=== PATIENT | female | born 1955 | race African-American/Black ===

== ENCOUNTER 2017-01-01 19:57 | Emergency (ER) | payer OTHER ==
[~2017-01-01] VITALS: Ht 172.7 cm; Wt 132.0 kg
[2017-01-01 23:02] LABS: BASOPHILS % 0.6 % (0.0-2.0); EOSINOPHILS % 0.9 % (0.0-5.0); HEMOGLOBIN. 10.4 g/dL (12.0-16.0); MEAN CORPUSCULAR HEMOGLOBIN 26.4 pg (28.0-32.0); MEAN CORPUSCULAR VOLUME 83.7 fL (81.0-99.0); MEAN PLATELET VOLUME 9.1 fl (7.4-10.4); MONOCYTES % 10.3 % (2.0-8.0); NEUTROPHILS % 42.2 % (40.0-76.0); PLATELET 270 x1000/uL (130-400); RED BLOOD CELL COUNT 3.95 mill/uL (4.2-5.4); RED CELL DISTRIBUTION WIDTH 13.3 % (11.6-14.6)
[2017-01-01 23:19] LABS: CARBON DIOXIDE 30 mEq/L (21-32); CHLORIDE 103 mEq/L (98-107); ETHANOL BLOOD < 10 mg/dL; HCG SCREEN NEGATIVE
[2017-01-02] MEDS ORDERED: OLANZAPINE 5MG TABLET PO SCH (00:15)
[2017-01-02 00:44] LABS: CLARITY URINE CLEAR (CLEAR); COLOR URINE YELLOW (YELLOW); KETONES URINE NEGATIVE (NEGATIVE); LEUKOCYTE ESTERASE URINE 2+ (NEGATIVE); NITRITE URINE NEGATIVE (NEGATIVE); OCCULT BLOOD URINE NEGATIVE (NEGATIVE); PH URINE 6.5 (4.5-8.0); PROTEIN URINE NEGATIVE (NEGATIVE); SPECIFIC GRAVITY URINE 1.019 (1.005-1.030)
[2017-01-02 00:55] LABS: *AMPHETAMINES SCREEN URINE NEGATIVE (NEGATIVE); *BARBITURATES SCREEN URINE NEGATIVE (NEGATIVE); *BENZODIAZEPINES SCREEN URINE PRESUMTIVE POSITIVE (NEGATIVE); *COCAINE SCREEN URINE NEGATIVE (NEGATIVE); CANNABINOID URINE SCREEN NEGATIVE (NEGATIVE); METHADONE URINE SCREEN NEGATIVE (NEGATIVE); OPIATES URINE SCREEN NEGATIVE (NEGATIVE); PHENCYCLIDINE URINE SCREEN NEGATIVE (NEGATIVE)
[2017-01-02] MEDS ORDERED: LORAZEPAM 2MG/ML CPJ IM ONE ×2 (01:30)
[2017-01-02] MEDS ORDERED: HALOPERIDOL LACTATE 5MG/ML VIAL IM STA (01:42)
[2017-01-02 07:10] VITALS: BP 158/101
== END 2017-01-02 07:25 | disposition home or self-care (01) ==
LOC: ER 21:15
DX: R44.0 Auditory hallucinations (principal); I10 Essential (primary) hypertension; J44.9 Chronic obstructive pulmonary disease, unspecified; G40.909 Epilepsy, unspecified, not intractable, without status epilepticus
CPT/HCPCS: 36415; 80053; 80305; 80307; 80329; 81001; 84703; 85025; 96372; 99284; G0482; J1630; J2060; Z7610

== ENCOUNTER 2017-01-15 16:50 | Emergency (ER) | payer OTHER ==
[~2017-01-15] VITALS: Ht 172.7 cm; Wt 127.0 kg
[2017-01-15] MEDS ORDERED: LORAZEPAM 2MG/ML CPJ IM ONE (18:00)
[2017-01-15] MEDS ORDERED: HALOPERIDOL LACTATE 5MG/ML VIAL IM ONE (18:00)
[2017-01-15] MEDS ORDERED: DIPHENHYDRAMINE 50MG/ML VIAL IM ONE (18:00)
[2017-01-15 18:40] LABS: EOSINOPHILS % 1.2 % (0.0-5.0); HEMATOCRIT. 30.9 % (36.0-48.0); HEMOGLOBIN. 9.7 g/dL (12.0-16.0); LYMPHOCYTES % 55.8 % (20.0-50.0); MEAN CORPUSCULAR HEMOGLOBIN 26.3 pg (28.0-32.0); MEAN CORPUSCULAR VOLUME 83.8 fL (81.0-99.0); MEAN PLATELET VOLUME 9.5 fl (7.4-10.4); MONOCYTES % 7.9 % (2.0-8.0); NEUTROPHILS % 33.1 % (40.0-76.0); PLATELET 258 x1000/uL (130-400); RED BLOOD CELL COUNT 3.69 mill/uL (4.2-5.4); RED CELL DISTRIBUTION WIDTH 13.5 % (11.6-14.6)
[2017-01-15 19:04] LABS: CARBON DIOXIDE 30 mEq/L (21-32); CHLORIDE 106 mEq/L (98-107); ETHANOL BLOOD < 10 mg/dL
[2017-01-15 19:08] LABS: CARBAMAZEPINE < 0.5 ug/mL (4-12); PHENOBARBITAL < 2.1 ug/mL (15.0-40.0)
[2017-01-15 19:26] LABS: CLARITY URINE CLEAR (CLEAR); COLOR URINE YELLOW (YELLOW); GLUCOSE URINE NEGATIVE (NEGATIVE); KETONES URINE TRACE (NEGATIVE); LEUKOCYTE ESTERASE URINE 1+ (NEGATIVE); NITRITE URINE NEGATIVE (NEGATIVE); OCCULT BLOOD URINE NEGATIVE (NEGATIVE); PROTEIN URINE NEGATIVE (NEGATIVE); SPECIFIC GRAVITY URINE 1.023 (1.005-1.030)
[2017-01-15 19:44] LABS: *AMPHETAMINES SCREEN URINE NEGATIVE (NEGATIVE); *BARBITURATES SCREEN URINE NEGATIVE (NEGATIVE); *BENZODIAZEPINES SCREEN URINE PRESUMTIVE POSITIVE (NEGATIVE); *COCAINE SCREEN URINE NEGATIVE (NEGATIVE); CANNABINOID URINE SCREEN NEGATIVE (NEGATIVE); METHADONE URINE SCREEN NEGATIVE (NEGATIVE); OPIATES URINE SCREEN NEGATIVE (NEGATIVE); PHENCYCLIDINE URINE SCREEN NEGATIVE (NEGATIVE)
[2017-01-15 20:00] VITALS: BP 131/77
== END 2017-01-15 20:48 | disposition home or self-care (01) ==
LOC: ER 17:51
DX: F41.9 Anxiety disorder, unspecified (principal); J44.9 Chronic obstructive pulmonary disease, unspecified; I10 Essential (primary) hypertension; I25.2 Old myocardial infarction; F31.9 Bipolar disorder, unspecified; Z59.0 Homelessness
CPT/HCPCS: 36415; 80053; 80156; 80165; 80184; 80185; 80305; 80307; 80329; 81001; 85025; 96372; 99284; G0482; J1200; J1630; J2060; Z7610

== ENCOUNTER 2017-01-17 12:58 | Emergency (ER) | payer OTHER ==
[~2017-01-17] VITALS: Ht 177.8 cm; Wt 130.0 kg
[2017-01-17 18:00] VITALS: BP 113/76
== END 2017-01-17 18:49 | disposition home or self-care (01) ==
LOC: ER 13:26
DX: Z59.0 Homelessness (principal); I11.0 Hypertensive heart disease with heart failure; I50.9 Heart failure, unspecified; J44.9 Chronic obstructive pulmonary disease, unspecified; F31.9 Bipolar disorder, unspecified; G40.909 Epilepsy, unspecified, not intractable, without status epilepticus; E11.9 Type 2 diabetes mellitus without complications
CPT/HCPCS: 99283

== ENCOUNTER 2017-01-17 20:51 | Emergency (ER) | payer OTHER ==
[~2017-01-17] VITALS: Ht 170.2 cm; Wt 128.0 kg
[2017-01-17 21:46] VITALS: BP 134/70
== END 2017-01-18 01:31 | disposition home or self-care (01) ==
LOC: ER 20:51
DX: Z00.8 Encounter for other general examination (principal); I10 Essential (primary) hypertension; E11.9 Type 2 diabetes mellitus without complications; J44.9 Chronic obstructive pulmonary disease, unspecified; F31.9 Bipolar disorder, unspecified; I25.2 Old myocardial infarction; R56.9 Unspecified convulsions
CPT/HCPCS: 99281

== ENCOUNTER 2017-01-18 00:43 | Emergency (ER) | payer OTHER ==
[~2017-01-18] VITALS: Ht 170.2 cm; Wt 128.0 kg
[2017-01-18 01:55] VITALS: BP 128/68
== END 2017-01-18 05:56 | disposition left against medical advice (07) ==
LOC: ER 00:43
DX: R51 Headache (principal); Z53.21 Procedure and treatment not carried out due to patient leaving prior to being seen by health care provider

== ENCOUNTER 2017-01-18 18:18 | Emergency (ER) | payer OTHER ==
[~2017-01-18] VITALS: Ht 165.1 cm; Wt 120.0 kg
[2017-01-18 18:19] VITALS: BP 116/65
== END 2017-01-19 13:04 | disposition left against medical advice (07) ==
LOC: ER 20:32
DX: Z53.21 Procedure and treatment not carried out due to patient leaving prior to being seen by health care provider (principal)

== ENCOUNTER 2017-01-21 08:56 | Emergency (ER) | payer OTHER ==
[~2017-01-21] VITALS: Ht 152.4 cm; Wt 131.0 kg
[2017-01-21 10:26] VITALS: BP 141/77
== END 2017-01-21 14:45 | disposition left against medical advice (07) ==
LOC: ER 08:56
DX: M25.571 Pain in right ankle and joints of right foot (principal); Z53.21 Procedure and treatment not carried out due to patient leaving prior to being seen by health care provider

== ENCOUNTER 2017-06-22 09:23 | Inpatient (IN) | payer OTHER ==
[~2017-06-22] VITALS: Ht 170.2 cm; Wt 123.4 kg
[~2017-06-22 09:23] MED LIST: ASPI-1159 PO; CALC0.253 PO; CLON0.3T PO; DIVA500T51 PO; LISI40TA4 PO; METF500T4 PO; METO-539 PO; OXYB5TAB11 PO; QUET200T PO
[2017-06-22] MEDS ORDERED: PREDNISONE 20MG TABLET PO STA (09:42)
[2017-06-22] MEDS ORDERED: METOPROLOL TARTRATE 50MG TABLET PO ONE (09:45)
[2017-06-22] MEDS ORDERED: CLONIDINE 0.3MG TABLET PO ONE (09:45)
[2017-06-22] MEDS ORDERED: LISINOPRIL 40MG TABLET PO ONE (09:45)
[2017-06-22 10:18] LABS: BASOPHILS % 1.1 % (0.0-2.0); EOSINOPHILS % 1.9 % (0.0-5.0); HEMATOCRIT. 31.9 % (36.0-48.0); LYMPHOCYTES % 43.7 % (20.0-50.0); MEAN CORPUSCULAR HEMOGLOBIN 25.1 pg (28.0-32.0); MEAN PLATELET VOLUME 9.4 fl (7.4-10.4); MONOCYTES % 8.9 % (2.0-8.0); NEUTROPHILS % 44.4 % (40.0-76.0); PLATELET 302 x1000/uL (130-400); RED BLOOD CELL COUNT 3.99 mill/uL (4.2-5.4); RED CELL DISTRIBUTION WIDTH 14.9 % (11.6-14.6)
[2017-06-22 10:23] LABS: INR 1.1; PARTIAL THROMBOPLASTIN TIME 24.9 sec (23.4-31.0); PROTHROMBIN TIME 11.2 sec (9.4-11.6)
[2017-06-22 10:30] LABS: CHLORIDE 101 mEq/L (98-107); TROPONIN I < 0.02 ng/mL (0.00-0.04)
[2017-06-22] MEDS ORDERED: NITROGLYCERIN OINT 1GM/INCH UDPKT TD ONE (11:00)
[2017-06-22] MEDS ORDERED: FUROSEMIDE 40MG/4ML VIAL IVP ONE (11:00)
[2017-06-22] MEDS ORDERED: LORAZEPAM 1MG TABLET PO ONE (13:30)
[2017-06-22] MEDS ORDERED: DOCUSATE SODIUM 100MG CAPSULE PO PRN (17:45)
[2017-06-22] MEDS ORDERED: MAGNESIUM/ALUMINUM HYDROXIDE/SIMETHICONE 30ML UDC PO PRN (17:45)
[2017-06-22] MEDS ORDERED: IPRATROPIUM/ALBUTEROL 0.5-3(2.5)MG/3ML NEB HHN PRN (17:45)
[2017-06-22] MEDS ORDERED: LORAZEPAM 2MG/ML CPJ IV PRN (17:45)
[2017-06-22] MEDS ORDERED: HYDROCODONE/ACETAMINOPHEN 5/325MG TABLET PO PRN (17:45)
[2017-06-22] MEDS ORDERED: DIPHENHYDRAMINE 50MG/ML VIAL IV PRN (17:45)
[2017-06-22] MEDS ORDERED: CLONIDINE 0.1MG TABLET PO PRN (17:45)
[2017-06-22] MEDS ORDERED: ACETAMINOPHEN 325MG TABLET PO PRN (17:45)
[2017-06-22] MEDS ORDERED: GUAIFENESIN/CODEINE 100-10MG/5ML UDC PO PRN (17:45)
[2017-06-22] MEDS ORDERED: ONDANSETRON HCL 4MG/2ML VIAL IV PRN (17:45)
[2017-06-22 17:57] VITALS: BP 144/77
[2017-06-22 19:57] VITALS: BP 149/83
[2017-06-22] MEDS ORDERED: DEXTROSE 50% WATER 50ML SYRINGE IV PRN (20:15)
[2017-06-22] MEDS: ENOXAPARIN 30MG/0.3ML SYR SUBCUT SCH (20:31)
[2017-06-22] MEDS: INSULIN LISPRO 100 UNITS/ML SUBCUT SCH (20:44)
[2017-06-22] MEDS: BLOOD SUGAR DIAGNOSTIC STRIP TEST SCH (20:44)
[2017-06-23] VITALS: BP 135/80
[2017-06-23 04:00] VITALS: BP 155/88
[2017-06-23 06:55] LABS: HEMATOCRIT 32.8 % (36.0-48.0); HEMOGLOBIN 10.1 g/dL (12.0-16.0); MEAN CORPUSCULAR HEMOGLOBIN 24.7 pg (28.0-32.0); MEAN CORPUSCULAR VOLUME 80.1 fL (81.0-99.0); PLATELET 322 x1000/uL (130-400); RED CELL DISTRIBUTION WIDTH 15.2 % (11.6-14.6)
[2017-06-23] MEDS: INSULIN LISPRO 100 UNITS/ML SUBCUT SCH ×4 (07:15→21:00)
[2017-06-23] MEDS: BLOOD SUGAR DIAGNOSTIC STRIP TEST SCH ×4 (07:15→21:31)
[2017-06-23 07:52] LABS: CHLORIDE 99 mEq/L (98-107)
[2017-06-23 08:00] VITALS: BP 175/87
[2017-06-23] MEDS: ASPIRIN 81MG TABLET PO SCH (08:46)
[2017-06-23] MEDS: ENOXAPARIN 30MG/0.3ML SYR SUBCUT SCH ×2 (08:46→21:22)
[2017-06-23] MEDS ORDERED: CALCITRIOL 0.25MCG CAPSULE PO SCH (09:00)
[2017-06-23] MEDS: METOPROLOL TARTRATE 50MG TABLET PO SCH ×2 (09:57→21:21)
[2017-06-23] MEDS: OXYBUTYNIN CHLORIDE 5MG TABLET PO SCH ×3 (09:57→16:34)
[2017-06-23] MEDS: CLONIDINE 0.3MG TABLET PO SCH ×3 (09:57→16:34)
[2017-06-23] MEDS: DIVALPROEX SODIUM 500MG ER TABLET PO SCH (09:57)
[2017-06-23] MEDS: LISINOPRIL 40MG TABLET PO SCH (09:57)
[2017-06-23] MEDS: METFORMIN HCL 500MG TABLET PO SCH ×2 (09:57→16:34)
[2017-06-23 12:00] VITALS: BP 174/75
[2017-06-23] MEDS: FUROSEMIDE 40MG/4ML VIAL IVP SCH ×2 (15:06→16:34)
[2017-06-23 16:00] VITALS: BP 153/74
[2017-06-23] MEDS: IPRATROPIUM/ALBUTEROL 0.5-3(2.5)MG/3ML NEB HHN SCH ×2 (16:30→21:32)
[2017-06-23 20:00] VITALS: BP 119/64
[2017-06-23] MEDS ORDERED: QUETIAPINE FUMARATE 100MG TABLET PO SCH (21:00)
[2017-06-23] MEDS: HYDRALAZINE HCL 50MG TABLET PO SCH (21:21)
[2017-06-24] VITALS: BP 142/80
[2017-06-24 04:00] VITALS: BP 169/73
[2017-06-24] MEDS: HYDRALAZINE HCL 50MG TABLET PO SCH (06:04)
[2017-06-24] MEDS: BLOOD SUGAR DIAGNOSTIC STRIP TEST SCH (06:56)
[2017-06-24] MEDS: INSULIN LISPRO 100 UNITS/ML SUBCUT SCH (06:57)
[2017-06-24] MEDS: IPRATROPIUM/ALBUTEROL 0.5-3(2.5)MG/3ML NEB HHN SCH (07:42)
[2017-06-24 08:00] VITALS: BP 158/91
[2017-06-24] MEDS: DIVALPROEX SODIUM 500MG ER TABLET PO SCH (08:43)
[2017-06-24] MEDS: OXYBUTYNIN CHLORIDE 5MG TABLET PO SCH (08:43)
[2017-06-24] MEDS: LISINOPRIL 40MG TABLET PO SCH (08:43)
[2017-06-24] MEDS: CLONIDINE 0.3MG TABLET PO SCH (08:43)
[2017-06-24] MEDS: ENOXAPARIN 30MG/0.3ML SYR SUBCUT SCH (08:44)
[2017-06-24] MEDS: ASPIRIN 81MG TABLET PO SCH (08:44)
[2017-06-24] MEDS: METFORMIN HCL 500MG TABLET PO SCH (08:44)
[2017-06-24] MEDS: FUROSEMIDE 40MG/4ML VIAL IVP SCH ×2 (08:44→09:36)
[2017-06-24] MEDS: METOPROLOL TARTRATE 50MG TABLET PO SCH (08:44)
[2017-06-24] MEDS ORDERED: DIVALPROEX SODIUM 500MG ER TABLET PO SCH (21:00)
== END 2017-06-24 10:10 | disposition left against medical advice (07) | DRG 144 ==
LOC: ER 09:58 → 8WST 11:01 → ENRESERV 13:36
PROVIDERS: ADMIT Internal Medicine; ATTEND Internal Medicine
DX: R06.02 Shortness of breath (principal); I11.0 Hypertensive heart disease with heart failure; I50.9 Heart failure, unspecified; Z68.41 Body mass index [BMI] 40.0-44.9, adult; E66.01 Morbid (severe) obesity due to excess calories; J44.9 Chronic obstructive pulmonary disease, unspecified; E11.9 Type 2 diabetes mellitus without complications; F31.9 Bipolar disorder, unspecified; F17.200 Nicotine dependence, unspecified, uncomplicated; G40.909 Epilepsy, unspecified, not intractable, without status epilepticus; Z53.21 Procedure and treatment not carried out due to patient leaving prior to being seen by health care provider; I25.10 Atherosclerotic heart disease of native coronary artery without angina pectoris; I25.2 Old myocardial infarction; Z79.82 Long term (current) use of aspirin; Z79.84 Long term (current) use of oral hypoglycemic drugs; Z79.899 Other long term (current) drug therapy; Z91.19 Patient's noncompliance with other medical treatment and regimen; Z90.49 Acquired absence of other specified parts of digestive tract
CPT/HCPCS: 36415; 71045; 80048; 80053; 80061; 82962; 83036; 83880; 84439; 84443; 84484; 85025; 85027; 85610; 85730; 93005; 94640; 94664; 96374; 99285; J1650; J1815; J1940; J2060; J7512; J7620

== ENCOUNTER 2017-06-24 14:10 | Emergency (ER) | payer OTHER ==
[~2017-06-24] VITALS: Ht 170.2 cm; Wt 82.0 kg
[2017-06-24 19:11] LABS: BASOPHILS % 1.3 % (0.0-2.0); EOSINOPHILS % 1.2 % (0.0-5.0); HEMATOCRIT. 34.4 % (36.0-48.0); LYMPHOCYTES % 50.9 % (20.0-50.0); MEAN CORPUSCULAR HEMOGLOBIN 25.6 pg (28.0-32.0); MEAN CORPUSCULAR VOLUME 79.9 fL (81.0-99.0); MEAN PLATELET VOLUME 9.3 fl (7.4-10.4); MONOCYTES % 5.9 % (2.0-8.0); NEUTROPHILS % 40.7 % (40.0-76.0); PLATELET 319 x1000/uL (130-400); RED BLOOD CELL COUNT 4.31 mill/uL (4.2-5.4)
[2017-06-24 19:26] LABS: CHLORIDE 101 mEq/L (98-107); TROPONIN I < 0.02 ng/mL (0.00-0.04)
[2017-06-24] MEDS ORDERED: CLONIDINE 0.3MG TABLET PO ONE (19:30)
[2017-06-25 10:03] VITALS: BP 161/82
== END 2017-06-25 10:05 | disposition home or self-care (01) ==
LOC: ER 15:26
DX: R06.02 Shortness of breath (principal); F41.0 Panic disorder [episodic paroxysmal anxiety]; Z91.14 Patient's other noncompliance with medication regimen; I11.0 Hypertensive heart disease with heart failure; I50.9 Heart failure, unspecified; E11.9 Type 2 diabetes mellitus without complications; G40.909 Epilepsy, unspecified, not intractable, without status epilepticus; J44.9 Chronic obstructive pulmonary disease, unspecified; F17.210 Nicotine dependence, cigarettes, uncomplicated; Z59.0 Homelessness
CPT/HCPCS: 36415; 71045; 80053; 83880; 84484; 85025; 93005; 99285

== ENCOUNTER 2017-07-16 02:49 | Emergency (ER) | payer OTHER ==
[~2017-07-16] VITALS: Ht 170.2 cm; Wt 132.0 kg
[2017-07-16] MEDS ORDERED: IPRATROPIUM BROMIDE (0.02%) 0.5MG/2.5ML NEB HHN STA (03:14)
[2017-07-16] MEDS ORDERED: ALBUTEROL (0.083%) 2.5MG/3ML NEB HHN STA (03:14)
[2017-07-16] MEDS ORDERED: METHYLPREDNISOLONE SOD SUCC 125 MG/2 ML VIAL IV STA (03:14)
[2017-07-16] MEDS ORDERED: MAGNESIUM 2 G PREMIX 50 ML IV ONE (03:15)
[2017-07-16] MEDS ORDERED: AZITHROMYCIN 500 MG in DEXT 5% WATER 250 ML IV SCH (04:00)
[2017-07-16] MEDS ORDERED: CEFTRIAXONE 1 G PREMIX 50 ML IV ONE (04:00)
[2017-07-16] MEDS ORDERED: FUROSEMIDE 100MG/10ML VIAL IVP ONE (04:00)
[2017-07-16 05:44] LABS: BASOPHILS % 0.9 % (0.0-2.0); EOSINOPHILS % 0.4 % (0.0-5.0); HEMATOCRIT. 35.1 % (36.0-48.0); HEMOGLOBIN. 10.7 g/dL (12.0-16.0); LYMPHOCYTES % 19.2 % (20.0-50.0); MEAN CORPUSCULAR HEMOGLOBIN 25.4 pg (28.0-32.0); MEAN CORPUSCULAR VOLUME 83.4 fL (81.0-99.0); MEAN PLATELET VOLUME 9.6 fl (7.4-10.4); MONOCYTES % 6.5 % (2.0-8.0); PLATELET 264 x1000/uL (130-400); RED BLOOD CELL COUNT 4.21 mill/uL (4.2-5.4)
[2017-07-16 05:45] LABS: PROTHROMBIN TIME 10.6 sec (9.4-11.6)
[2017-07-16 05:50] LABS: CHLORIDE 106 mEq/L (98-107)
[2017-07-16 05:55] LABS: TROPONIN I 0.05 ng/mL (0.00-0.04)
[2017-07-16] MEDS ORDERED: OLANZAPINE 10 MG/VIAL IM ONE ×2 (06:15→10:00)
[2017-07-16 11:21] VITALS: BP 178/94
[2017-07-16] MEDS: METHYLPREDNISOLONE SOD SUCC 125 MG/2 ML VIAL IM ONE ×2 (11:39→11:41)
== END 2017-07-16 11:30 | disposition short-term general hospital (02) ==
LOC: ER 03:00 → EDBEDREQ 04:21 → EDBEDREQSVC 04:21 → ER 11:30 → CANRESERV 18:32 → ENRESERV 18:32 → CANBEDREQ 07-17 02:12
DX: J44.1 Chronic obstructive pulmonary disease with (acute) exacerbation (principal); I11.0 Hypertensive heart disease with heart failure; I50.9 Heart failure, unspecified; E11.9 Type 2 diabetes mellitus without complications; R00.0 Tachycardia, unspecified; G40.909 Epilepsy, unspecified, not intractable, without status epilepticus; F17.210 Nicotine dependence, cigarettes, uncomplicated; Z71.6 Tobacco abuse counseling; I25.2 Old myocardial infarction; Z79.82 Long term (current) use of aspirin; Z86.73 Personal history of transient ischemic attack (TIA), and cerebral infarction without residual deficits; J84.9 Interstitial pulmonary disease, unspecified; Z59.0 Homelessness; Z90.49 Acquired absence of other specified parts of digestive tract; Z79.899 Other long term (current) drug therapy
CPT/HCPCS: 36415; 71045; 80053; 83605; 83880; 84484; 85025; 85610; 87040; 93005; 96372; 96374; 99285; 99406; C1893; J0456; J2930; J3490; Z7610; J7060; J7611

== ENCOUNTER 2018-09-11 14:08 | Inpatient (IN) | payer OTHER ==
[~2018-09-11] VITALS: Ht 170.2 cm; Wt 132.0 kg
[~2018-09-11 14:08] MED LIST changes: +METF-414 PO; -METF500T4 PO
[2018-09-11 15:42] LABS: CHLORIDE 104 mEq/L (98-107); HEMOGLOBIN. 12.2 g/dL (12.0-16.0); MEAN CORPUSCULAR HEMOGLOBIN 26.6 pg (28.0-32.0); MEAN CORPUSCULAR VOLUME 83.2 fL (81.0-99.0); MEAN PLATELET VOLUME 10.1 fl (7.4-10.4); PLATELET 257 x1000/uL (130-400); RED BLOOD CELL COUNT 4.57 mill/uL (4.2-5.4); RED CELL DISTRIBUTION WIDTH 13.5 % (11.6-14.6)
[2018-09-11 16:03] LABS: PLATELET ESTIMATE NORMAL
[2018-09-11 16:17] LABS: PROTHROMBIN TIME 10.5 sec (9.6-11.0)
[2018-09-11 16:51] LABS: CLARITY URINE CLOUDY (CLEAR); COLOR URINE DARK YELLOW (YELLOW); KETONES URINE TRACE (NEGATIVE); LEUKOCYTE ESTERASE URINE 1+ (NEGATIVE); NITRITE URINE NEGATIVE (NEGATIVE); OCCULT BLOOD URINE NEGATIVE (NEGATIVE); PH URINE 5.5 (4.5-8.0); PROTEIN URINE TRACE (NEGATIVE); SPECIFIC GRAVITY URINE 1.032 (1.005-1.030)
[2018-09-11] MEDS ORDERED: FAMOTIDINE 20MG/2ML VIAL IV STA (17:32)
[2018-09-11] MEDS ORDERED: MAGNESIUM/ALUMINUM HYDROXIDE/SIMETHICONE 30ML UDC PO STA (17:32)
[2018-09-11] MEDS ORDERED: SODIUM CHLORIDE 0.9% 1,000 ML IV ONE (17:32)
[2018-09-11] MEDS ORDERED: ONDANSETRON HCL 4MG/2ML INJ IV STA (17:32)
[2018-09-11] MEDS ORDERED: DICYCLOMINE HCL 10MG/ML 2ML AMP IM ONE (17:45)
[2018-09-11] MEDS ORDERED: FAMOTIDINE 20MG TABLET PO ONE (19:15)
[2018-09-11] MEDS ORDERED: ONDANSETRON HCL 4MG TABLET PO ONE (19:15)
[2018-09-11] MEDS ORDERED: CLONIDINE 0.3MG TABLET PO ONE (19:30)
[2018-09-11] MEDS ORDERED: METRONIDAZOLE 500MG TABLET PO ONE (21:45)
[2018-09-11] MEDS ORDERED: CEFTRIAXONE 1 G PREMIX 50 ML IV ONE (21:45)
[2018-09-11] MEDS ORDERED: MAGNESIUM/ALUMINUM HYDROXIDE/SIMETHICONE 30ML UDC PO SCH (22:00)
[2018-09-11] MEDS ORDERED: DICYCLOMINE HCL 10MG/ML 2ML AMP IM SCH (22:00)
[2018-09-11] MEDS ORDERED: CLONIDINE 0.3MG TABLET PO SCH (22:00)
[2018-09-12] VITALS (7 sets, daily range): BP systolic 130–213; BP diastolic 77–131
[2018-09-12 06:50] LABS: HEMATOCRIT 40.7 % (36.0-48.0); HEMOGLOBIN 12.8 g/dL (12.0-16.0); MEAN CORPUSCULAR HEMOGLOBIN 26.2 pg (28.0-32.0); PLATELET 223 x1000/uL (130-400); RED CELL DISTRIBUTION WIDTH 13.6 % (11.6-14.6)
[2018-09-12] MEDS ORDERED: ONDANSETRON HCL 4MG/2ML INJ IV PRN (11:15)
[2018-09-12] MEDS ORDERED: CLONIDINE 0.1MG TABLET PO PRN (11:15)
[2018-09-12] MEDS ORDERED: LOSARTAN POTASSIUM 25 MG TABLET PO NR (11:30)
[2018-09-12] MEDS ORDERED: LABETALOL 5MG/ML SYR 20 MG/4 ML SYRINGE IV ONE (12:00)
[2018-09-12] MEDS: NICOTINE 7MG PATCH TD SCH (12:39)
[2018-09-12] MEDS: MORPHINE SULFATE 4 MG/ML CPJ (NOT FOR IM USE) IV PRN ×2 (12:40→17:46)
[2018-09-12] MEDS: CEFTRIAXONE 1 G PREMIX 50 ML IV SCH (12:41)
[2018-09-12] MEDS ORDERED: SORBITOL 70% SOLN 30ML PO PRN (13:15)
[2018-09-12] MEDS ORDERED: HYDRALAZINE 20MG/ML VIAL IV PRN (13:45)
[2018-09-12] MEDS: CLONIDINE 0.3MG TABLET PO SCH ×2 (14:00→22:32)
[2018-09-12] MEDS: DICYCLOMINE HCL 10MG CAPSULE PO SCH ×2 (14:09→17:46)
[2018-09-12] MEDS: DOCUSATE SODIUM SUGAR FREE 100MG/10ML UDC NG SCH ×2 (14:09→17:46)
[2018-09-12 16:05] LABS: HEMOGLOBIN 12.6 g/dL (12.0-16.0)
[2018-09-12] MEDS ORDERED: SORBITOL 70% SOLN 30ML PO NR ×2 (17:00→21:00)
[2018-09-12] MEDS: LOSARTAN POTASSIUM 50 MG TABLET PO SCH (21:00)
[2018-09-12] MEDS: AMLODIPINE 5MG TABLET PO SCH (21:00)
[2018-09-12] MEDS: PANTOPRAZOLE SODIUM 40 MG/VIAL IV SCH (21:08)
[2018-09-12] MEDS: DIVALPROEX SODIUM 250MG ER TABLET PO SCH (22:32)
[2018-09-12] MEDS: QUETIAPINE FUMARATE 100MG TABLET PO SCH (22:33)
[2018-09-13] VITALS (9 sets, daily range): BP systolic 70–128; BP diastolic 47–74
[2018-09-13] MEDS: CLONIDINE 0.3MG TABLET PO SCH ×3 (06:00→21:11)
[2018-09-13] MEDS: DICYCLOMINE HCL 10MG CAPSULE PO SCH ×4 (06:00→18:16)
[2018-09-13] MEDS ORDERED: SORBITOL 70% SOLN 30ML PO NR (06:00)
[2018-09-13] MEDS: AMLODIPINE 5MG TABLET PO SCH (09:00)
[2018-09-13] MEDS ORDERED: LOSARTAN POTASSIUM 50 MG TABLET PO SCH (09:00)
[2018-09-13] MEDS ORDERED: PANTOPRAZOLE SODIUM 40 MG/VIAL IV SCH (09:00)
[2018-09-13] MEDS ORDERED: QUETIAPINE FUMARATE 100MG TABLET PO SCH ×2 (09:00→21:00)
[2018-09-13] MEDS: LOSARTAN POTASSIUM 50 MG TABLET PO SCH (09:00)
[2018-09-13] MEDS: PANTOPRAZOLE SODIUM 40 MG/VIAL IV SCH ×2 (09:20→21:10)
[2018-09-13] MEDS: DOCUSATE SODIUM SUGAR FREE 100MG/10ML UDC NG SCH ×2 (09:21→17:00)
[2018-09-13] MEDS: NICOTINE 7MG PATCH TD SCH (09:21)
[2018-09-13] MEDS: MORPHINE SULFATE 4 MG/ML CPJ (NOT FOR IM USE) IV PRN (09:45)
[2018-09-13 10:16] LABS: BASOPHILS % 0.5 % (0.0-2.0); EOSINOPHILS % 0.4 % (0.0-5.0); HEMATOCRIT. 37.9 % (36.0-48.0); HEMOGLOBIN. 11.9 g/dL (12.0-16.0); LYMPHOCYTES % 26.7 % (20.0-50.0); MEAN CORPUSCULAR HEMOGLOBIN 26.2 pg (28.0-32.0); MEAN CORPUSCULAR VOLUME 83.1 fL (81.0-99.0); MEAN PLATELET VOLUME 9.8 fl (7.4-10.4); MONOCYTES % 7.9 % (2.0-8.0); NEUTROPHILS % 64.5 % (40.0-76.0); PLATELET 228 x1000/uL (130-400); RED BLOOD CELL COUNT 4.56 mill/uL (4.2-5.4); RED CELL DISTRIBUTION WIDTH 13.4 % (11.6-14.6)
[2018-09-13] MEDS: CEFTRIAXONE 1 G PREMIX 50 ML IV SCH (11:43)
[2018-09-13] MEDS ORDERED: SODIUM BICARBONATE 4% (2.4MEQ) 5ML VIAL IV ONE (13:16)
[2018-09-13] MEDS ORDERED: LIDOCAINE HCL 1% 20ML VIAL (Pyxis) INJ ONE (13:16)
[2018-09-13] MEDS ORDERED: BACTERIOSTATIC SODIUM CHLORIDE 0.9% 30ML VIAL IJ ONE (13:36)
[2018-09-13] MEDS ORDERED: SIMETHICONE 40 MG/0.6 ML 30ML ONE (13:36)
[2018-09-13] MEDS ORDERED: FENTANYL CITRATE/PF 50MCG/ML 2ML VIAL ONE (14:32)
[2018-09-13] MEDS ORDERED: MIDAZOLAM HCL 5 MG/5 ML VIAL ONE (14:32)
[2018-09-13 15:02] LABS: CREATINE KINASE 57 IU/L (26-192)
[2018-09-13] MEDS: SODIUM CHLORIDE 0.9% 1,000 ML IV SCH (16:31)
[2018-09-13] MEDS: QUETIAPINE FUMARATE 100MG TABLET PO SCH (21:10)
[2018-09-13] MEDS: DIVALPROEX SODIUM 250MG ER TABLET PO SCH (21:15)
[2018-09-14] MEDS: SODIUM CHLORIDE 0.9% 1,000 ML IV SCH (05:55)
[2018-09-14] MEDS: DICYCLOMINE HCL 10MG CAPSULE PO SCH ×3 (05:55→12:05)
[2018-09-14] MEDS: CLONIDINE 0.3MG TABLET PO SCH ×2 (05:55→14:00)
[2018-09-14 06:00] VITALS: BP 138/102
[2018-09-14 07:17] LABS: BASOPHILS % 0.4 % (0.0-2.0); HEMATOCRIT. 31.6 % (36.0-48.0); HEMOGLOBIN. 9.9 g/dL (12.0-16.0); LYMPHOCYTES % 31.8 % (20.0-50.0); MEAN CORPUSCULAR HEMOGLOBIN 26.3 pg (28.0-32.0); MEAN CORPUSCULAR VOLUME 84.1 fL (81.0-99.0); MEAN PLATELET VOLUME 10.3 fl (7.4-10.4); MONOCYTES % 8.7 % (2.0-8.0); NEUTROPHILS % 58.1 % (40.0-76.0); PLATELET 155 x1000/uL (130-400); RED BLOOD CELL COUNT 3.76 mill/uL (4.2-5.4); RED CELL DISTRIBUTION WIDTH 13.2 % (11.6-14.6)
[2018-09-14 07:20] LABS: CHLORIDE 109 mEq/L (98-107)
[2018-09-14 07:35] LABS: PHOSPHORUS 2.6 mg/dL (2.5-4.9)
[2018-09-14] MEDS ORDERED: MAGNESIUM OXIDE 400MG TABLET PO SCH (08:00)
[2018-09-14] MEDS: PANTOPRAZOLE SODIUM 40 MG/VIAL IV SCH (09:27)
[2018-09-14] MEDS: DOCUSATE SODIUM SUGAR FREE 100MG/10ML UDC NG SCH (09:28)
[2018-09-14] MEDS: NICOTINE 7MG PATCH TD SCH (09:28)
[2018-09-14] MEDS ORDERED: FUROSEMIDE 40MG/4ML VIAL IVP NR (11:30)
[2018-09-14 14:35] VITALS: BP 130/90
[2018-09-14] MEDS: CEFTRIAXONE 1 G PREMIX 50 ML IV SCH (15:03)
[2018-09-16 10:06] LABS: SACCHAROMYCES CEREVISIAE IGG <20.0 Units (0.0-24.9); SACCHAROMYCES CEREVISIAE IGM <20.0 Units (0.0-24.9)
[2018-09-16 14:15] LABS: ATYPICAL pANCA <1:20 titer (Neg:<1:20)
== END 2018-09-14 16:10 | disposition home or self-care (01) | DRG 246 ==
LOC: ER 14:08 → CANRESERV 09-12 08:26 → ENRESERV 09-12 08:26 → UNDOADMIN 09-12 08:49 → 5EST 09-12 08:49 → EDBEDREQSVC 09-12 08:51 → CANRESERV 09-12 10:06 → ENRESERV 09-12 10:06 → 5EST 09-12 11:05
PROVIDERS: ADMIT Internal Medicine; ATTEND Internal Medicine
PROC: 0DBN8ZX Excision of Sigmoid Colon, Via Natural or Artificial Opening Endoscopic, Diagnostic (ICD-10-PCS; principal; 2018-09-13)
PROC: 02HV33Z Insertion of Infusion Device into Superior Vena Cava, Percutaneous Approach (ICD-10-PCS; 2018-09-13)
PROC: B548ZZA Ultrasonography of Superior Vena Cava, Guidance (ICD-10-PCS; 2018-09-13)
DX: K55.039 Acute (reversible) ischemia of large intestine, extent unspecified (principal); N17.9 Acute kidney failure, unspecified; I50.9 Heart failure, unspecified; I11.0 Hypertensive heart disease with heart failure; E66.01 Morbid (severe) obesity due to excess calories; E87.5 Hyperkalemia; K64.8 Other hemorrhoids; E11.9 Type 2 diabetes mellitus without complications; E78.5 Hyperlipidemia, unspecified; F17.210 Nicotine dependence, cigarettes, uncomplicated; F31.9 Bipolar disorder, unspecified; I25.10 Atherosclerotic heart disease of native coronary artery without angina pectoris; J44.9 Chronic obstructive pulmonary disease, unspecified; K76.89 Other specified diseases of liver; N39.0 Urinary tract infection, site not specified; K59.00 Constipation, unspecified; K92.2 Gastrointestinal hemorrhage, unspecified; I25.2 Old myocardial infarction; Z79.82 Long term (current) use of aspirin; Z79.899 Other long term (current) drug therapy; Z82.49 Family history of ischemic heart disease and other diseases of the circulatory system; Z83.3 Family history of diabetes mellitus; Z90.49 Acquired absence of other specified parts of digestive tract; Z68.42 Body mass index [BMI] 45.0-49.9, adult
CPT/HCPCS: 36415; 36569; 71045; 74176; 76937; 80048; 82550; 82962; 83735; 83880; 84100; 85014; 85018; 85027; 86256; 86671; 88305; 99285; C1725; C1893; C9113; J0360; J0500; J0696; J1940; J2250; J2270; J3010; J3490; J7030; J7050; Q0162; A4315

== ENCOUNTER 2020-07-31 22:39 | Inpatient (IN) | payer OTHER ==
[~2020-07-31] VITALS: Ht 172.7 cm; Wt 140.3 kg
[~2020-07-31 22:39] MED LIST changes: -ASPI-1159 PO; +ASPI-1497 PO; +LISI40TA13 PO; -LISI40TA4 PO; -OXYB5TAB11 PO; +OXYB5TAB17 PO
[2020-07-31] MEDS ORDERED: METHYLPREDNISOLONE SOD SUCC 125 MG/2 ML VIAL IV STA (22:46)
[2020-07-31] MEDS ORDERED: IPRATROPIUM BROMIDE (0.02%) 0.5MG/2.5ML NEB HHN STA (22:46)
[2020-07-31] MEDS ORDERED: ASPIRIN 81MG TABLET PO ONE (23:00)
[2020-07-31] MEDS ORDERED: ALBUTEROL (0.083%) 2.5MG/3ML NEB HHN SCH (23:00)
[2020-07-31 23:39] LABS: BG BASE EXCESS 1.5 mmol/L (-2.0-2.0); BG CARBOXYHEMOGLOBIN 2.1 % (0.5-1.5); BG DEOXYHEMOGLOBIN 6.8 % (0.0-5.0); BG FRACTION INSPIRED OXYGEN 44; BG HCO3 ACT 29.7 mmol/L (22.0-26.0); BG METHEMOGLOBIN 0.2 % (0.0-1.5); BG OXYHEMOGLOBIN 90.9 % (94.0-97.0); BG PCO2 67.7 mmHg (35.0-45.0); BG PO2 76.3 mmHg (75.0-100.0); BG SAMPLE SITE RIGHT RADIAL; BG TOTAL HEMOGLOBIN 10.5 g/dL (12.0-18.0); BG VENT MODE NASAL CANNULA
[2020-07-31 23:43] LABS: BASOPHILS % 1.2 % (0.0-2.0); EOSINOPHILS % 2.8 % (0.0-5.0); HEMATOCRIT. 31.9 % (36.0-48.0); LYMPHOCYTES % 34.5 % (20.0-50.0); MEAN CORPUSCULAR HEMOGLOBIN 25.9 pg (28.0-32.0); MEAN CORPUSCULAR VOLUME 82.8 fL (81.0-99.0); MONOCYTES % 6.7 % (2.0-8.0); NEUTROPHILS % 54.8 % (40.0-76.0); PLATELET 214 x1000/uL (130-400); RED BLOOD CELL COUNT 3.86 mill/uL (4.2-5.4); RED CELL DISTRIBUTION WIDTH 13.8 % (11.6-14.6)
[2020-07-31 23:49] LABS: CHLORIDE 108 mEq/L (98-107)
[2020-08-01] VITALS (24 sets, daily range): BP systolic 128–165; BP diastolic 76–97
[2020-08-01] MEDS ORDERED: NITROGLYCERIN OINT 1GM/INCH UDPKT TD SCH (00:30)
[2020-08-01] MEDS ORDERED: FUROSEMIDE 40MG/4ML VIAL IV SCH (00:30)
[2020-08-01] MEDS ORDERED: ALBUTEROL 6.7GM HFA INHALER ORI PRN (06:00)
[2020-08-01] MEDS ORDERED: CEFTRIAXONE 1,000 MG in DEXTROSE 5% WATER 50 ML IV SCH (08:00)
[2020-08-01] MEDS ORDERED: AZITHROMYCIN 250 MG in DEXT 5% WATER 250 ML IV SCH (09:00)
[2020-08-01] MEDS ORDERED: ENOXAPARIN 40MG/0.4ML SYR SUBCUT SCH (09:00)
[2020-08-01] MEDS ORDERED: FAMOTIDINE 20MG/2ML VIAL IV SCH (09:00)
[2020-08-01] MEDS ORDERED: DEXAMETHASONE 10 MG/ML VIAL IV SCH (09:00)
== END 2020-08-01 12:00 | disposition left against medical advice (07) | DRG 133 ==
LOC: ER 22:39 → MICUSO 08-01 00:36 → ENRESERV 08-01 03:08
PROVIDERS: ADMIT Internal Medicine; ATTEND Internal Medicine
PROC: 5A09357 Assistance with Respiratory Ventilation, Less than 24 Consecutive Hours, Continuous Positive Airway Pressure (ICD-10-PCS; principal; 2020-08-01)
DX: J96.01 Acute respiratory failure with hypoxia (principal); F17.210 Nicotine dependence, cigarettes, uncomplicated; F11.90 Opioid use, unspecified, uncomplicated; Z53.29 Procedure and treatment not carried out because of patient's decision for other reasons; Z20.822 Contact with and (suspected) exposure to COVID-19; E11.9 Type 2 diabetes mellitus without complications; J44.9 Chronic obstructive pulmonary disease, unspecified; E66.9 Obesity, unspecified; J96.02 Acute respiratory failure with hypercapnia; I10 Essential (primary) hypertension; Z79.82 Long term (current) use of aspirin; Z79.899 Other long term (current) drug therapy; Z86.73 Personal history of transient ischemic attack (TIA), and cerebral infarction without residual deficits; Z71.6 Tobacco abuse counseling; Z68.42 Body mass index [BMI] 45.0-49.9, adult
CPT/HCPCS: 36415; 36600; 71045; 80053; 82375; 82805; 83605; 83880; 84484; 85025; 87426; 93005; 94640; 94660; 96374; 99291; J0456; J0696; J1100; J1650; J1940; J2930; J3490; J7060

== ENCOUNTER 2021-07-16 11:01 | Emergency (ER) | payer MEDICARE, OTHER ==
[~2021-07-16] VITALS: Ht 167.6 cm; Wt 114.0 kg
[2021-07-16 11:17] VITALS: BP 160/90
[2021-07-16 15:59] LABS: HEMOGLOBIN. 11.5 g/dL (12.0-16.0); MEAN CORPUSCULAR HEMOGLOBIN 26.1 pg (28.0-32.0); MEAN CORPUSCULAR VOLUME 79.8 fL (81.0-99.0); MEAN PLATELET VOLUME 9.4 fl (7.4-10.4); PLATELET 246 x1000/uL (130-400); RED BLOOD CELL COUNT 4.39 mill/uL (4.2-5.4)
[2021-07-16 16:01] LABS: CHLORIDE 106 mEq/L (98-107)
[2021-07-16 16:04] LABS: ETHANOL BLOOD < 10 mg/dL
[2021-07-16 17:34] LABS: PLATELET ESTIMATE NORMAL
== END 2021-07-16 13:46 | disposition home or self-care (01) ==
LOC: ER 11:10
DX: R42 Dizziness and giddiness (principal); E11.9 Type 2 diabetes mellitus without complications; J45.909 Unspecified asthma, uncomplicated; I10 Essential (primary) hypertension; Z79.82 Long term (current) use of aspirin; Z86.73 Personal history of transient ischemic attack (TIA), and cerebral infarction without residual deficits; Z86.59 Personal history of other mental and behavioral disorders
CPT/HCPCS: 36415; 80053; 80307; 80320; 80329; 85025; 93005; 99284; G0480

== ENCOUNTER 2021-07-16 15:23 | Emergency (ER) | payer MEDICARE, MEDICAID ==
[~2021-07-16] VITALS: Ht 172.7 cm; Wt 90.0 kg
[2021-07-16] MEDS ORDERED: LORAZEPAM 1MG TABLET PO ONE (20:15)
[2021-07-16] MEDS ORDERED: ACETAMINOPHEN 325MG TABLET PO ONE (20:15)
[2021-07-16 20:25] LABS: CLARITY URINE CLOUDY (CLEAR); COLOR URINE DARK YELLOW (YELLOW); KETONES URINE TRACE (NEGATIVE); LEUKOCYTE ESTERASE URINE 1+ (NEGATIVE); NITRITE URINE NEGATIVE (NEGATIVE); OCCULT BLOOD URINE NEGATIVE (NEGATIVE); PROTEIN URINE 1+ (NEGATIVE)
[2021-07-16] MEDS: OLANZAPINE 5MG TABLET PO SCH (20:35)
[2021-07-16 20:36] LABS: *AMPHETAMINES SCREEN URINE NEGATIVE (NEGATIVE); *COCAINE SCREEN URINE PRESUMTIVE POSITIVE (NEGATIVE); CANNABINOID URINE SCREEN NEGATIVE (NEGATIVE); METHADONE URINE SCREEN NEGATIVE (NEGATIVE); OPIATES URINE SCREEN NEGATIVE (NEGATIVE); PHENCYCLIDINE URINE SCREEN NEGATIVE (NEGATIVE)
[2021-07-16 20:37] LABS: *BARBITURATES SCREEN URINE NEGATIVE (NEGATIVE); *BENZODIAZEPINES SCREEN URINE NEGATIVE (NEGATIVE)
[2021-07-16 21:14] LABS: HEMATOCRIT. 34.3 % (36.0-48.0); MEAN CORPUSCULAR HEMOGLOBIN 25.9 pg (28.0-32.0); MEAN CORPUSCULAR VOLUME 81.2 fL (81.0-99.0); PLATELET 228 x1000/uL (130-400); RED BLOOD CELL COUNT 4.22 mill/uL (4.2-5.4); RED CELL DISTRIBUTION WIDTH 15.4 % (11.6-14.6)
[2021-07-16 21:21] LABS: CHLORIDE 105 mEq/L (98-107)
[2021-07-16 21:26] LABS: ETHANOL BLOOD < 10 mg/dL
[2021-07-16 22:18] LABS: PLATELET ESTIMATE NORMAL
[2021-07-17] MEDS: OLANZAPINE 5MG TABLET PO SCH (08:32)
[2021-07-17] MEDS ORDERED: HALOPERIDOL 5MG TABLET PO SCH (13:45)
[2021-07-17 13:55] VITALS: BP 156/92
== END 2021-07-17 14:14 | disposition home or self-care (01) ==
LOC: ER 15:23
DX: R45.851 Suicidal ideations (principal); R44.0 Auditory hallucinations; F14.10 Cocaine abuse, uncomplicated; I13.11 Hypertensive heart and chronic kidney disease without heart failure, with stage 5 chronic kidney disease, or end stage renal disease; E11.22 Type 2 diabetes mellitus with diabetic chronic kidney disease; N18.6 End stage renal disease; Z99.2 Dependence on renal dialysis; J45.909 Unspecified asthma, uncomplicated; Z86.73 Personal history of transient ischemic attack (TIA), and cerebral infarction without residual deficits; F17.290 Nicotine dependence, other tobacco product, uncomplicated; Z79.899 Other long term (current) drug therapy; Z20.822 Contact with and (suspected) exposure to COVID-19
CPT/HCPCS: 36415; 80053; 80305; 80307; 80320; 80329; 81003; 82962; 85025; 99285; 99406; C9803; J1630; U0003; U0005; G0480